=== PATIENT | female | born 1965 | race Two or more races ===

== ENCOUNTER 2017-10-22 12:46 | Emergency (ER) | payer BC, OTHER ==
[2017-10-22 12:51] VITALS: BP 131/74
--- NOTE | 2017-10-22 13:24 | ER Document Report ---
HPI - HPI Patient complains to provider of: cough congestion sore throat Severity: Moderate Pain Level: 3 Associated Symptoms: Body/muscle aches, Nonproductive cough, Sinus pain/drainage , Sore throat Exacerbated by: Coughing Relieved by: Denies Similar symptoms previously: Yes Recently seen / treated by doctor: Yes - CONSTITUTIONAL Constitutional: DENIES: Fever, Chills - EENT EENT: REPORTS: Sore Throat - x2 days, Nasal Drainage-Purulent, Congestion. DENIES: Ear Pain, Nasal Drainage-Clear, Eye problems - NEURO Neurology: DENIES: Headache, Weakness, Vision blurred, Dizzinesss / Vertigo - CARDIOVASCULAR Cardiovascular: DENIES: Chest pain - RESPIRATORY Respiratory: REPORTS: Coughing. DENIES: Trouble Breathing - GASTROINTESTINAL Gastrointestinal: DENIES: Abdominal Pain, Black / Bloody Stools - URINARY Urinary: DENIES: Dysuria, Urgency, Frequency - REPRODUCTIVE Reproductive: DENIES: :, Postmenopausal, Abnormal bleeding / discharge - MUSCULOSKELETAL Musculoskeletal: DENIES: Extremity pain, Back Pain, Neck Pain, Swelling - DERM Skin Color: Normal Skin Problems: None Past Medical History - General Information source: Patient - Social History Smoking Status: Never Smoker Cigarette use (# per day): No Chew tobacco use (# tins/day): No Smoking Education Provided: No Frequency of alcohol use: Social Drug Abuse: None Lives with: Family Family History: Reviewed & Not Pertinent Patient has suicidal ideation: No Patient has homicidal ideation: No - Past Medical History Cardiac Medical History: Reports: None Pulmonary Medical History: Reports: None EENT Medical History: Reports: Nose Neurological Medical History: Reports: None Endocrine Medical History: Reports: None Renal/ Medical History: Reports: None Malignancy Medical History: Reports: None GI Medical History: Reports: Hx Gastroesophageal Reflux Disease Musculoskeletal Medical History: Reports None Skin Medical History: Reports None Psychiatric Medical History: Reports: None Traumatic Medical History: Reports: None Infectious Medical History: Reports: None Past Surgical History: Reports: Hx Section - x3 - Immunizations Immunizations up to date: Yes Hx Diphtheria, Pertussis, Tetanus Vaccination: Yes Vertical Provider Document - CONSTITUTIONAL Agree With Documented VS: Yes Exam Limitations: No Limitations General Appearance: WD/WN - INFECTION CONTROL TRAVEL OUTSIDE OF THE [place] IN LAST 30 DAYS: No - HEENT HEENT: Atraumatic, Normocephalic Notes: Swollen inflamed nasal turbinates with postnasal drip. Lungs clear to auscultation. No swelling or exudate to tonsils. Oropharynx is slightly red. - NECK Neck: Normal Inspection - RESPIRATORY Respiratory: Breath Sounds Normal, No Respiratory Distress. negative: Rales, Rhonchi, Wheezing - CARDIOVASCULAR Cardiovascular: Regular Rate, Regular Rhythm - MUSCULOSKELETAL/EXTREMETIES Musculoskeletal/Extremeties: MAEW, FROM, Non-Tender - NEURO Level of Consciousness: Awake, Alert, Appropriate - DERM Integumentary: Warm, Dry, No Rash Course - Re-evaluation Re-evalutation: 10/22/17 20:47 Assessment was consistent with an upper respiratory infection. Patient was instructed on use Claritin as Sudafed and Mucinex ibuprofen Flonase and salt and soda gargles. Patient was instructed to follow-up with her primary doctor. After performing a Medical Screening Examination, I estimate there is LOW risk for ACUTE CORONARY SYNDROME, RESPIRATORY FAILURE, SEPSIS OR MENINGITIS, thus I consider the discharge disposition reasonable. I have reevaluated this patient multiple times and no significant life threatening changes are noted. The patient and I have discussed the diagnosis and risks, and we agree with discharging home with close follow-up. We also discussed returning to the Emergency Department immediately if new or worsening symptoms occur. We have discussed the symptoms which are most concerning (e.g., changing or worsening pain, trouble swallowing or breathing, neck stiffness, fever) that necessitate immediate return. - Vital Signs Vital signs: Temp Pulse Resp BP Pulse Ox 98.9 F 96 18 131/74 H 97 10/22/17 12:49 10/22/17 12:49 10/22/17 12:49 10/22/17 12:49 10/22/17 12:49 Discharge - Discharge Clinical Impression: URI (upper respiratory infection) Qualifiers: URI type: unspecified URI Qualified Code(s): J06.9 - Acute upper respiratory infection, unspecified Condition: Stable Disposition: HOME, SELF-CARE Instructions: Family Physicians / Practices Additional Instructions: UPPER RESPIRATORY ILLNESS: You have a viral infection of the respiratory passages -- a "cold." This common infection causes nasal congestion, drainage, and often sore throat and cough. It is highly contagious. The disease usually lasts about 10 to 14 days. There is no "cure" for the viral infection -- it must run its course. If there is a complication, such as bacterial infection in the nose, sinuses, middle ear, or bronchial tubes, antibiotics may be required. The antibiotics won't affect the virus. Drink plenty of fluids. A humidifier may help. An expectorant medication or decongestant may make you more comfortable. Use acetaminophen or ibuprofen for fever or aches. See the doctor if fever persists over two days, if there is any significant worsening of your symptoms, or if you simply fail to improve as expected. DECONGESTANT MEDICATION: A decongestant medicine has been suggested. Often this medicine is combined in the same tablet with an antihistamine or expectorant. This type of medicine is helpful in treating a bad cold or sinus condition, as well as in treatment of the nasal congestion of hay fever. It is not of much benefit for lung infections. Decongestant medicines are related to stimulants. They can cause an increase in blood pressure and heart rate. Persons with heart disease and high blood pressure should not take decongestants without discussing this with the physician. If you develop palpitations, chest pain, headache, or tremors, stop the medicine and consult your physician. USE OF ACETAMINOPHEN (Tylenol): Acetaminophen may be taken for pain relief or fever control. It's much safer than aspirin, offering a wider range of "safe" dosages. It is safe during . Some brand names are Tylenol, Panadol, Datril, Anacin 3, Tempra, and Liquiprin. Acetaminophen can be repeated every four hours. The following are maximum recommended dosages: >89 pounds or adults 650 mg to 900 mg Acetaminophen can be repeated every four hours. Maximum dose not to exceed 4000 mg a day. You will treated with Claritin 10 mg, Sudafed 30 mg, Mucinex 600 mg, and ibuprofen while in the emergency room. These are all jook-wzy-harbmrx medications. You could also try Flonase 2 sprays each nostril followed the instructions on the box. For your sore throat you could try salt and soda solution gargles 3 times a day. He can also try Chloraseptic spray. The rapid strep test was negative and a throat culture was started and if anything grows out on it you will be called. Because your afebrile we will not start antibiotics at this time your symptoms all appear to be viral and antibiotics will not do you any good at this time. Salt and soda solution 1 quart of water 1 tablespoon of salt 1 teaspoon of baking soda Mixed 3 ingredients together and boil for 1 minute Placed in a covered quart jar Use 1/2 ounce of cold solution to gargle 3 times a day FOLLOW-UP CARE: I recommend that you follow-up with your primary doctor and get a referral to [facility]. If you have been referred to a physician for follow-up care, call the physician s office for an appointment as you were instructed or within the next two days. If you experience worsening or a significant change in your symptoms, notify the physician immediately or return to the Emergency Department at any time for re-evaluation. Forms: Elevated Blood Pressure, Return to Work
[2017-10-22] MEDS ORDERED: GUAIFENESIN 600 MG TABLET.SA PO ONE (13:48)
[2017-10-22] MEDS ORDERED: PSEUDOEPHEDRINE HCL 30 MG TABLET PO ONE (13:48)
[2017-10-22] MEDS ORDERED: LORATADINE 10 MG TABLET PO ONE (13:48)
[2017-10-22] MEDS ORDERED: IBUPROFEN 600 MG TABLET PO ONE (13:48)
== END 2017-10-22 14:15 | disposition home or self-care (01) ==
LOC: ER 12:46
DX: J06.9 Acute upper respiratory infection, unspecified (principal); M79.1 Myalgia; R05 Cough; J34.89 Other specified disorders of nose and nasal sinuses; J02.9 Acute pharyngitis, unspecified; R09.82 Postnasal drip
CPT/HCPCS: 87070; 87880; 99283

== ENCOUNTER 2018-04-08 17:20 | Emergency (ER) | payer BC, OTHER ==
[2018-04-08 17:46] VITALS: BP 115/73
[2018-04-08] MEDS ORDERED: HYDROCODONE/ACETAMINOPHEN 5-325 MG TABLET PO ONE (18:15)
--- NOTE | 2018-04-08 18:15 | ER Document Report ---
HPI - HPI Patient complains to provider of: Right knee pain Time Seen by Provider: 04/08/18 18:10 Onset: Other - 1.5 weeks Onset/Duration: Persistent Quality of pain: Achy Pain Level: 4 Context: Patient states that she tripped over some pillows 2 weeks ago injuring her knee. Patient states that she has had pain for the past 10 days. Patient denies any new injury. Patient complains of some swelling to the right knee. No fever. No history of gout. Associated Symptoms: Other - Right knee pain. denies: Fever Exacerbated by: Standing, Movement, Walking Relieved by: Denies Similar symptoms previously: No Recently seen / treated by doctor: No - ROS ROS below otherwise negative: Yes Systems Reviewed and Negative: Yes All other systems reviewed and negative - CONSTITUTIONAL Constitutional: DENIES: Fever, Chills - NEURO Neurology: DENIES: Weakness - REPRODUCTIVE Reproductive: DENIES: : - MUSCULOSKELETAL Musculoskeletal: REPORTS: Extremity pain - right knee, Swelling - DERM Skin Color: Normal Skin Problems: None Past Medical History - General Information source: Patient - Social History Smoking Status: Never Smoker Chew tobacco use (# tins/day): No Frequency of alcohol use: Occasional Drug Abuse: None Occupation: [employer] Lives with: Spouse/Significant other Family History: Reviewed & Not Pertinent Patient has suicidal ideation: No Patient has homicidal ideation: No Renal/ Medical History: Denies: Hx Peritoneal Dialysis GI Medical History: Reports: Hx Gastroesophageal Reflux Disease Past Surgical History: Reports: Hx Section - x3 - Immunizations Immunizations up to date: Yes Hx Diphtheria, Pertussis, Tetanus Vaccination: Yes Vertical Provider Document - CONSTITUTIONAL Agree With Documented VS: Yes Exam Limitations: No Limitations General Appearance: WD/WN, No Apparent Distress - INFECTION CONTROL TRAVEL OUTSIDE OF THE [place] IN LAST 30 DAYS: No - HEENT HEENT: Atraumatic, Normocephalic - NECK Neck: Normal Inspection - RESPIRATORY Respiratory: Breath Sounds Normal, No Respiratory Distress - CARDIOVASCULAR Cardiovascular: Regular Rate, Regular Rhythm Pulses: Normal: Dorsalis pedis - MUSCULOSKELETAL/EXTREMETIES Musculoskeletal/Extremeties: MAEW, FROM, Tender - Right knee joint tenderness to inferior compartment, no laxity with varus or valgus maneuvers. Patellar tendon intact. Normal skin color and temperature overlying joint, Edema - NEURO Level of Consciousness: Awake, Alert, Appropriate Motor/Sensory: No Motor Deficit, No Sensory Deficit - DERM Integumentary: Warm, Dry, No Rash Course - Re-evaluation Re-evalutation: 04/08/18 Patient with mild swelling to right knee, no concern for fracture, no concern for gout or septic arthritis. Patient nontoxic in appearance. - Vital Signs Vital signs: Temp Pulse Resp BP Pulse Ox 99.1 F 78 14 115/73 97 04/08/18 17:45 04/08/18 17:45 04/08/18 17:45 04/08/18 17:45 04/08/18 17:45 - Diagnostic Test Radiology reviewed: Image reviewed, Reports reviewed Procedures - Immobilization Right Knee Pre-Proc Neuro Vasc Exam: Normal Immobilizer type: Pedro wrap Performed by: PCT Post-Proc Neuro Vasc Exam: Normal Alignment checked and good: Yes Discharge - Discharge Clinical Impression: Right knee sprain Qualifiers: Encounter type: initial encounter Involved ligament of knee: unspecified ligament Qualified Code(s): S83.91XA - Sprain of unspecified site of right knee, initial encounter Condition: Stable Disposition: HOME, SELF-CARE Instructions: Pedro Wrap ([facility]), Use of Crutches ([facility]), Ice & Elevation ([facility]), Sprained Knee ([facility]) Additional Instructions: Return immediately for any new or worsening symptoms Followup with your primary care provider, call tomorrow to make a followup appointment Weightbearing as tolerated Follow-up with orthopedics for any persistent pain or problems Avoid wearing high heels until knee pain has completely resolved Prescriptions: Naproxen [Naprosyn 250 Nmg Tablet] 1 tab PO BID #14 tablet Forms: Return to Work Referrals: [facility] [Provider Group] - Follow up as needed
--- NOTE | 2018-04-08 18:54 | RADIOLOGY REPORT (SQ) ---
EXAM DESCRIPTION: KNEE RIGHT 4 VIEWS COMPLETED DATE/TIME: 04/08/2018 6:43 pm REASON FOR STUDY: fall, r knee pain COMPARISON: None. NUMBER OF VIEWS: Four views. TECHNIQUE: AP, lateral, and both oblique radiographic images acquired of the right knee. LIMITATIONS: None. FINDINGS: MINERALIZATION: Normal. BONES: No acute fracture or dislocation. No worrisome bone lesions. JOINT: No effusion. SOFT TISSUES: No soft tissue swelling. No radio-opaque foreign body. OTHER: No other significant finding. IMPRESSION: NEGATIVE STUDY OF THE RIGHT KNEE. NO RADIOGRAPHIC EVIDENCE OF ACUTE INJURY. TECHNICAL DOCUMENTATION: JOB ID: [id number] [employer]- All Rights Reserved Reading location - IP/workstation name: [email or web address]
== END 2018-04-08 19:35 | disposition home or self-care (01) ==
LOC: ER 17:20
DX: S83.91XA Sprain of unspecified site of right knee, initial encounter (principal); M25.561 Pain in right knee; X58.XXXA Exposure to other specified factors, initial encounter
CPT/HCPCS: 99283

== ENCOUNTER 2018-06-08 07:57 | Day surgery (SDC) | payer BC, OTHER ==
[2018-06-02 11:28] LABS: APPEARANCE,URINE SLIGHTLY-CLOUDY; BILIRUBIN,URINE NEGATIVE (NEGATIVE); COLOR,URINE YELLOW; GLUCOSE, URINE NEGATIVE (NEGATIVE); KETONES,URINE NEGATIVE (NEGATIVE); LEUKOCYTE ESTERASE,URINE SMALL (NEGATIVE); NITRITE,URINE NEGATIVE (NEGATIVE); PROTEIN,URINE NEGATIVE (NEGATIVE); URINE SPECIFIC GRAVITY 1.023; UROBILINOGEN,URINE NEGATIVE mg/dL (<2.0)
[2018-06-02 11:33] LABS: ABSOLUTE EOSINOPHILS # (AUTO) 0.3 10^3/uL (0.0-0.6); ABSOLUTE LYMPHOCYTES (AUTO) 2.1 10^3/uL (0.5-4.7); ABSOLUTE MONOCYTES (AUTO) 0.5 10^3/uL (0.1-1.4); ABSOLUTE NEUT (AUTO) 3.6 10^3/uL (1.7-8.2); BASOPHILS % (AUTO) 0.7 % (0-2); EOSINOPHILS % (AUTO) 4.8 % (0-6); HEMOGLOBIN 15.1 g/dL (12.0-15.5); LYMPHOCYTES % (AUTO) 31.5 % (13-45); MEAN CORPUSCULAR HEMOGLOBIN 31.6 pg (27.0-33.4); MEAN CORPUSCULAR HGB CONC 34.4 g/dL (32.0-36.0); MEAN CORPUSCULAR VOLUME 92 fl (80-97); MONOCYTES % (AUTO) 8.2 % (3-13); PLATELET COUNT 248 10^3/uL (150-450); RED BLOOD COUNT 4.78 10^6/uL (3.72-5.28); RED CELL DISTRIBUTION WIDTH 12.6 % (11.5-14.0); SEGMENTED NEUTROPHILS % (AUTO) 54.8 % (42-78); TOTAL CELLS COUNTED % (AUTO) 100 %; WHITE BLOOD COUNT 6.5 10^3/uL (4.0-10.5)
[2018-06-02 11:52] LABS: ANION GAP 7 (5-19); BLOOD UREA NITROGEN 16 mg/dL (7-20); CALCIUM 9.6 mg/dL (8.4-10.2); CARBON DIOXIDE 29 mmol/L (22-30); CHLORIDE 104 mmol/L (98-107); GLUCOSE 105 mg/dL (75-110); POTASSIUM 4.1 mmol/L (3.6-5.0); SODIUM 140.4 mmol/L (137-145)
--- NOTE | 2018-06-02 12:27 | RADIOLOGY REPORT (SQ) ---
EXAM DESCRIPTION: CHEST PA/LATERAL COMPLETED DATE/TIME: 06/02/2018 10:37 am REASON FOR STUDY: PRE-OP COMPARISON: None. TECHNIQUE: Frontal and lateral radiographic views of the chest acquired. NUMBER OF VIEWS: Two view. LIMITATIONS: None. FINDINGS: LUNGS AND PLEURA: No opacities, masses or pneumothorax. No pleural effusion. MEDIASTINUM AND HILAR STRUCTURES: No masses or contour abnormalities. HEART AND VASCULAR STRUCTURES: Heart normal size. No evidence for failure. BONES: No acute findings. HARDWARE: None in the chest. OTHER: No other significant finding. IMPRESSION: NO SIGNIFICANT RADIOGRAPHIC FINDING IN THE CHEST. TECHNICAL DOCUMENTATION: JOB ID: [id number] [employer]- All Rights Reserved Reading location - IP/workstation name: [email or web address]
--- NOTE | 2018-06-02 14:48 | EKG REPORT ---
SEVERITY:- NORMAL ECG - SINUS RHYTHM : Confirmed by: Brenda Maynard MD 02-Jun-2018 14:47:37
[~2018-06-08 07:57] MED LIST: CEFAZOLIN 2 GM/D5W RTU 2 GM/50 ML RTUPB IV ONE; CEFAZOLIN 2 GM/D5W RTU 2 GM/50 ML RTUPB IV PRN; LACTATED RINGERS 1000 ML IV PRN; LIDOCAINE 0.5% INJ-PF (5 MG/ML) 50 ML SDV SUBCUT PRN
[2018-06-08] MEDS ORDERED: BUPIVACAINE HCL 0.5 % INJ/PF 30 ML SDV ONE (10:22)
[2018-06-08] MEDS ORDERED: LIDOCAINE 1%/EPINEPHRINE INJ 20 ML VIAL ONE (10:22)
[2018-06-08] MEDS ORDERED: FENTANYL CITRATE INJ/PF 100 MCG/2 ML AMPUL ONE (10:24)
[2018-06-08] MEDS ORDERED: PROPOFOL INJ 200 MG/20 ML VIAL IV ONE (10:25)
[2018-06-08] MEDS ORDERED: MIDAZOLAM 2 MG/2 ML INJ ONE (10:25)
[2018-06-08] MEDS ORDERED: MEPERIDINE HCL/PF INJ 25 MG/1 ML DISP.SYRIN IV PRN (10:53)
[2018-06-08] MEDS ORDERED: MORPHINE SULFATE 10 MG/ML INJ IV PRN (10:53)
[2018-06-08] MEDS ORDERED: FENTANYL CITRATE INJ/PF 100 MCG/2 ML AMPUL IV PRN ×3 (10:53)
[2018-06-08] MEDS ORDERED: DIPHENHYDRAMINE HCL 50 MG/ML VIAL IV PRN (10:53)
[2018-06-08] MEDS ORDERED: PROMETHAZINE HCL INJ 25 MG/1 ML VIAL IV PRN ×2 (10:53)
--- NOTE | 2018-06-08 11:04 | Discharge Summary ---
Discharge Summary (SDC) - Discharge Final Diagnosis: Right medial meniscal tear Date of Surgery: 06/08/18 Discharge Date: 06/08/18 Condition: Good Treatment or Instructions: Removed compressive wrap on Wednesday. Underlying OpSite dressing can be left intact until you return to the office. Prescriptions: Oxycodone HCl/Acetaminophen [Percocet 5-325 mg Tablet] 1 tab PO Q6 PRN #25 tab PRN Reason: Discharge Diet: As Tolerated, Regular Respiratory Treatments at Home: Deep Breathing/Coughing Discharge Activity: Activity As Tolerated, Balance Activity w/Rest, No tub bath Home Care Assistance: None Needed Report the Following to Your Physician Immediately: Shortness of Breath, Fever over 101 Degrees, Drainage-Foul Smelling
--- NOTE | 2018-06-08 11:06 | Operative Report ---
Operative Report DATE OF SURGERY: 06/08/18 PREOPERATIVE DIAGNOSIS: Right medial meniscal tear POSTOPERATIVE DIAGNOSIS: Right medial meniscal tear. 2.5 cm chondral lesion medial femoral condyle. Intact ACL. 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 Lateral meniscal tear. Grade 0-1 chondral malacia patellofemoral compartment OPERATION: Arthroscopic right partial medial and lateral meniscectomy, microfracture medial femoral condyle SURGEON: CECI GONZALEZ ANESTHESIA: LMAC PROCEDURE: With the patient supine on the operative table the right lower extremities prepped and draped in sterile fashion. The knee is insufflated with combination of Marcaine, Xylocaine, and epinephrine. Subsequent medial lateral patella portals are created for the introduction of arthroscope and debridement instrumentation. Joint is examined in systematic fashion. Using combination basket Braswell, mechanical shaver, and electric frequency ablation probe a partial lateral meniscectomy was performed from approximately 7:00 to 10:00 on the face of the dial. Similar partial medial meniscectomy was performed from approximately 3:00 to 12:00 in the face of the dial. The chondral lesion on the medial femoral condyle which measures approximately 2 and half centimeters is debrided of loose fragments using mechanical shaver. Subsequent microfracture awls were then used to punctate the subchondral bone. The pressure in the knee is reduced to ensure that these microfractures resulted in bleeding which they do. At this point instrumentation was removed. Portals reapproximated with interrupted nylon. A sterile compressive dressing was applied and the patient's return to the PACU in satisfactory condition.
[2018-06-08] MEDS ORDERED: OXYCODONE-ACETAMINOPHEN 5-325 MG TABLET PO PRN (11:32)
[2018-06-08 12:49] VITALS: BP 121/71
== END 2018-06-08 12:40 | disposition home or self-care (01) ==
LOC: OROUT 07:57
PROVIDERS: ATTEND Orthopaedic Surgery
DX: M23.300 Other meniscus derangements, unspecified lateral meniscus, right knee (principal); M23.303 Other meniscus derangements, unspecified medial meniscus, right knee; M22.41 Chondromalacia patellae, right knee; Z79.1 Long term (current) use of non-steroidal anti-inflammatories (NSAID); M25.861 Other specified joint disorders, right knee
CPT/HCPCS: 29880; 29879; 93005; 36415; 85025; 81025; 80048; 81001; 71046; 93010; J2250; J3490 ×2; J3010; J2704; J0690; 1400